=== PATIENT | male | born 1960 | race Caucasian/White ===

== ENCOUNTER → 2017-01-09 | Outpatient (CLI) | payer SELFPAY ==
--- NOTE | 2017-01-09 15:22 | DI ---
XR CXR 2VW PA/LAT,01/09/2017 8:49 AM: Clinical History: Upper respiratory infection. Previous Exam: None at this facility. Findings: PA and lateral views of the chest are obtained, and demonstrate clear lungs. The cardiomediastinum an d bony thorax are unremarkable. There is some gentle dextroscoliosis of the midthoracic spine. Impression: Normal chest.
== END ==
LOC: MOB LAB 08:49
PROVIDERS: ATTEND Physician Assistant
DX: J06.9 Acute upper respiratory infection, unspecified (principal)
CPT/HCPCS: 71020